=== PATIENT | female | born 2005 | race Caucasian/White ===

== ENCOUNTER 2025-06-01 12:22 | Emergency (ER) | payer MEDICAID, OTHER ==
[~2025-06-01] VITALS: Ht 167.6 cm; Wt 59.0 kg
[2025-06-01 13:05] LABS: PLATELET COUNT (AUTO) 283 K/uL (150-450); RED BLOOD CELL COUNT(AUTO) 5.30 MIL/uL (4.0-5.2); RED CELL DISTRIBUTION WIDTH 17.1 % (11.5-15.0); WHITE BLOOD COUNT (AUTO) 9.3 K/uL (4.3-11.0)
[2025-06-01 13:09] LABS: APPEARANCE,URINE CLEAR (CLEAR); BLOOD, URINE Moderate Ery/uL (NEGATIVE); LEUKOCYTE ESTERASE ,URINE Trace (NEGATIVE); NITRITE, URINE NEGATIVE (NEGATIVE); UGLUCOSE Negative (NEGATIVE)
[2025-06-01 13:12] LABS: PREGNANCY TEST URINE QUAL NEGATIVE (NEGATIVE)
[2025-06-01 13:15] LABS: ADD URINE CULTURE YES
[2025-06-01 13:16] LABS: CALCIUM, SERUM 8.6 mg/dL (8.5-10.1); CREATININE 0.7 mg/dL (0.6-1.3); SODIUM SERUM 138.0 mmol/L (136-145); UREA NITROGEN, BLOOD 11.0 mg/dL (7-18)
[2025-06-01 13:22] LABS: ASPARTATE AMINOTRANSFERASE 16.0 U/L (15-37); TOTAL PROTEIN, SERUM 7.4 g/dL (6.4-8.2)
[2025-06-01] MEDS ORDERED: NITR100C6 PO (14:11)
[2025-06-01 15:17] VITALS: BP 126/64; TEMP 98.4; O2SAT 100
[2025-06-01 20:05] LABS: YEAST,URINE Few /HPF (None Seen)
== END 2025-06-01 15:18 | disposition home or self-care (01) ==
LOC: ER 12:30
DX: N39.0 Urinary tract infection, site not specified (principal); R10.31 Right lower quadrant pain; R11.0 Nausea; Z91.048 Other nonmedicinal substance allergy status
CPT/HCPCS: 36415; 76856-TC; 80048-TC; 80076-TC; 81001; 83690-TC; 84703-TC; 85025-TC; 87086-TC; 87186-TC